=== PATIENT | female | born 1955 | race African-American/Black ===

== ENCOUNTER 2017-02-07 17:33 | Emergency (ER) | payer OTHER ==
[~2017-02-07] VITALS: Ht 165.1 cm; Wt 66.7 kg
--- NOTE | ~2017-02-07 | CT2 ---
[facility] A Service [facility] RADIOLOGY TEXT RESULTS PATIENT: CARLIN DE LEON LOCATION: SED : 55 UNIT #: [id number] AGE: [address]: Kerwin Cordoba MD SEX: F ORDER DR: [id number] [address] [address] [id number] MR#: [id number] #: [id number] NAME: CARLIN DE LEON : 1955 SEX: F STUDY DATE/TIME: 02/07/2017 19:40 UNIT: SED ROOM: STUDY DESCRIPTION: CT Abd and Pelv W Cont Attending Physician: Kerwin Cordoba M.D. Ordering Physician: Shola Marcos M.D. Primary Care Physician: [facility] MEDICAL IMAGING REPORT This report is preliminary unless electronic signature is present. EXAM CT abdomen and pelvis with contrast. DATE 02/07/2017 HISTORY 61-year-old female with severe stomach pain, onset yesterday. Nausea and vomiting. Additional history of peptic ulcer disease, fatty liver. Smoking history. Previous stroke. COMPARISON CT abdomen and pelvis with contrast, 12/06/2009. PROCEDURE 5 mm axial images through the abdomen and pelvis after intravenous and enteric contrast administration. Sagittal and coronal reformatted images were obtained. This CT exam was performed with one or more of the following radiation dose reduction techniques: automatic exposure control, adjustment of mA and/or kV according to patient size, and iterative reconstruction. FINDINGS ABDOMEN FINDINGS: Liver appears mildly and diffusely steatotic. Less than 5 mm low density lesion in right hepatic lobe is technically too small to characterize, but this would be favored to represent a cyst and appears unchanged from prior exam. A cyst in the lateral left hepatic segment measures 1.3 cm. Lung bases are free of consolidation. There is mild subpleural scarring in the left base. The gallbladder is normal. The spleen, pancreas, adrenals and kidneys are within normal limits. The appendix is normal. Limited evaluation of bowel, as most of the contrast remains in within the [facility] A Service of [facility] RADIOLOGY TEXT RESULTS PATIENT: CARLIN DE LEON [place] [facility] [place] 55 UNIT #: [id number] AGE: [address]: Kerwin Cordoba MD SEX: F ORDER DR: stomach at the time of image acquisition. No focal bowel inflammatory changes are seen and there is no evidence of high-grade bowel obstruction. PELVIS FINDINGS: Urinary bladder and rectum are normal. No pelvic adenopathy is seen. Hysterectomy. Facet arthropathy is present within the lower lumbar spine. No acute osseous abnormalities are identified. There is questionable mild thickening versus incomplete distension of the gastric antrum. IMPRESSION 1. Questionable mild thickening versus incomplete distension of the gastric antrum. Correlate clinically for gastritis symptoms. Endoscopy may prove helpful for further evaluation. 2. Remainder of the abdomen and pelvis demonstrate no acute findings. 3. Hepatic cyst. 4. Hysterectomy. 5. Normal appendix. Dictated by... Lauren Degroot M.D. THIS IS AN ELECTRONICALLY VERIFIED REPORT Lauren Degroot M.D. at 02/10/2017 9:52 AM URVASHI/mile TD: 02/09/2017 07:13 JOB #: [id number] MEDICAL IMAGING REPORT Page 1 of 1
[~2017-02-07 17:33] MED LIST: ACID REDUCER75 M1 PO; ASPIRIN81 MG PO; ATORVASTATIN CA80 MG PO; BACLOFEN10 MG PO; BACTRIM 400-801 TA1; BENZONATATE PO; BLOOD PRESSURE MED; CALAN PO; CIPRO PO; ESOMEPRAZOLE MA40 MG; FIORICET 50-321 EACH PO; FLANAX220 MG; FLEXERIL PO; FLEXERIL10 MG; HCTZ; HCTZ PO; HYDROCHLOROTH12.5 MG PO; HYDROCHLOROTHIA25 MG PO; K-DUR20 ME1 DOB; KLOR-CON; METOPROLOL SUCC25 MG PO; MOTRIN PO; NAPROXEN PO; NORVASC PO; NORVASC10 MG PO; OMEPRAZOLE20 M1 PO; PEPCID AC20 M2 PO; PERCOCET PO; PERCOCET10 PO; PREDNISONE PO; PRILOSEC PO; PYRIDIUM100 MG; ROBAXIN PO; ROBITUSSIN AC PO; SKELAXIN PO; TIZANIDINE HCL2 M1 PO; ULTRAM PO; UNKNOWN BP MED; VERAPAMIL HCL240 MG; VICODIN 5-3001 EACH; ZANTAC150 MG PO; ZOFRAN ODT4 MG PO
[2017-02-07 18:19] LABS: URINE SOURCE CLEAN CATCH
[2017-02-07 18:20] LABS: BASOPHIL# 0.1 X10e3 (0-0.3); BASOPHIL% 1.4 % (0-2.5); EOSINOPHIL# 0.1 X10e3 (0-0.7); EOSINOPHIL% 1.4 % (0.0-7.0); HEMOGLOBIN 13.4 gm/dL (12.0-16.0); LYMPHOCYTE# 3.1 X10e3 (1.0-3.5); LYMPHOCYTE% 31.8 % (17.0-45.0); MEAN CELL VOLUME 84.1 FL (83-96); MEAN CORPUSCULAR HEMOGLOBIN 28.2 PG (28-34); MEAN CORPUSCULAR HGB CONC 33.5 g/dL (30-36); MONOCYTE# 0.9 X10e3 (0-1.0); MONOCYTE% 9.2 % (3.0-12.0); NEUTROPHIL# 5.5 X10e3 (1.5-7.1); NEUTROPHIL% 56.2 % (40-75); PLATELET COUNT 261 X10e3 (140-420); RED BLOOD COUNT 4.75 X10e (3.90-5.30); RED CELL DISTRIBUTION WIDTH 14.5 % (11.0-15.5); WHITE BLOOD COUNT 9.8 X10e3 (4.0-10.5)
[2017-02-07 18:22] LABS: URINE APPEARANCE CLEAR; URINE BILIRUBIN NEG (NEG); URINE BLOOD NEG (NEG); URINE COLOR YELLOW; URINE GLUCOSE NEG (NORM); URINE KETONE NEG (NEG); URINE LEUKOCYTE ESTERASE NEG (NEG); URINE NITRATE NEG (NEG); URINE PH 6.5 (5-8); URINE PROTEIN NEG (NEG); URINE UROBILINOGEN 0.2 MG/DL (NORM)
[2017-02-07 18:22] LABS: DIFF IND NO
[2017-02-07 18:25] LABS: MICRO INDICATED? NO
[2017-02-07 18:39] LABS: ALBUMIN SERUM 4.2 g/dL (3.5-5.0); BILIRUBIN, DIRECT 0.1 mg/dL (0.0-0.2); BILIRUBIN,INDIRECT 0.3 mg/dL (0.0-0.9); BILIRUBIN,TOTAL 0.4 mg/dL (0.2-2.0); BUN/CREATININE RATIO 13.33; CALCIUM SERUM 9.2 mg/dL (8.4-10.2); CREATININE SERUM 0.9 mg/dL (0.6-1.4); POTASSIUM 3.7 mmol/L (3.5-5.1); PROTEIN TOTAL SERUM 7.4 g/dL (6.0-8.3)
== END 2017-02-07 20:23 | disposition home or self-care (01) ==
LOC: SED 17:33
PROVIDERS: Emergency Medicine
DX: K27.9 Peptic ulcer, site unspecified, unspecified as acute or chronic, without hemorrhage or perforation (principal); K21.9 Gastro-esophageal reflux disease without esophagitis; Z86.73 Personal history of transient ischemic attack (TIA), and cerebral infarction without residual deficits; F17.210 Nicotine dependence, cigarettes, uncomplicated; Z90.710 Acquired absence of both cervix and uterus; Z98.890 Other specified postprocedural states; Z79.899 Other long term (current) drug therapy; Z88.8 Allergy status to other drugs, medicaments and biological substances
CPT/HCPCS: 36415; 74177; 80048; 80076; 81003; 82150; 83690; 85025; 96361; 96374; 96375; 99284; C9113; J1170; J2405; Q9967